=== PATIENT | female | born 1935 | race Hispanic/Latino ===

== ENCOUNTER → 2017-09-19 | Outpatient (CLI) | payer OTHER ==
[~2017-09-19] MED LIST: ALPR0.255 PO; ASPI-1197 PO; BENZ-51 PO; FOLI1TAB15 PO; METR500T PO; NAPR-1023 PO; OLME1TAB11 PO; OMEP20TA2 PO; OMEP40CA37 PO; ONDA4TAB4 PO; POTASSIUM PO; SIMV40TA5 PO; [UNRECOGNIZED DRUG - OTHER]
== END | disposition home or self-care (01) ==
LOC: OIH 10:46
PROVIDERS: ATTEND Internal Medicine
DX: M51.36 Other intervertebral disc degeneration, lumbar region (principal); M48.07 Spinal stenosis, lumbosacral region
CPT/HCPCS: 72100

== ENCOUNTER 2017-10-09 15:39 | Emergency (ER) | payer OTHER ==
[2017-10-09] MEDS ORDERED: DEXAMETHASONE SOD PHOSPHATE 10MG/ML 1ML VIAL ONE (16:35)
[2017-10-09] MEDS ORDERED: ONDANSETRON ODT 4 MG TAB ONE (16:35)
[2017-10-09] MEDS ORDERED: MORPHINE SULFATE 4 MG/1ML SYG ONE (16:36)
== END 2017-10-09 17:26 | disposition home or self-care (01) ==
LOC: EDH 15:39
DX: M54.32 Sciatica, left side (principal); K21.9 Gastro-esophageal reflux disease without esophagitis; I10 Essential (primary) hypertension; E78.5 Hyperlipidemia, unspecified; F15.10 Other stimulant abuse, uncomplicated; Z91.041 Radiographic dye allergy status
CPT/HCPCS: 96372 ×2; 99284; J1100; J2270

== ENCOUNTER → 2018-01-31 | Outpatient (CLI) | payer OTHER | END | disposition home or self-care (01) | LOC: OIH 11:26 | PROVIDERS: ATTEND Internal Medicine | DX: R07.9 Chest pain, unspecified (principal) | CPT/HCPCS: 71046 ==

== ENCOUNTER → 2018-12-29 | Outpatient (CLI) | payer OTHER | END | disposition home or self-care (01) | LOC: OIH 12:22 | PROVIDERS: ATTEND Internal Medicine | DX: S92.514A Nondisplaced fracture of proximal phalanx of right lesser toe(s), initial encounter for closed fracture (principal); X58.XXXA Exposure to other specified factors, initial encounter; Y93.89 Activity, other specified; Y92.89 Other specified places as the place of occurrence of the external cause; Y99.8 Other external cause status | CPT/HCPCS: 73620 ==

== ENCOUNTER → 2022-07-12 | Outpatient (CLI) | payer MEDICARE ==
[~2022-07-12] MED LIST changes: +BENZ-226 PO; -BENZ-51 PO; +OLME-40 PO; -OLME1TAB11 PO; +OMEP40CA21 PO; -OMEP40CA37 PO; +SIMV-46 PO; -SIMV40TA5 PO
== END | disposition home or self-care (01) ==
LOC: RAH 12:25
PROVIDERS: ATTEND Anesthesiology
DX: S33.140A Subluxation of L4/L5 lumbar vertebra, initial encounter (principal); M41.86 Other forms of scoliosis, lumbar region; M47.26 Other spondylosis with radiculopathy, lumbar region; X58.XXXA Exposure to other specified factors, initial encounter; Y93.89 Activity, other specified; Y92.89 Other specified places as the place of occurrence of the external cause; Y99.8 Other external cause status
CPT/HCPCS: 72114

== ENCOUNTER → 2024-07-05 | Outpatient (CLI) | payer MEDICARE ==
[~2024-07-05] MED LIST changes: -NAPR-1023 PO; +NAPR-1194 PO
--- NOTE | 2024-07-05 12:07 | HMCIMG ---
Exam Type: CHEST 2VWS Clinical Information: INTERSTITIAL LUNG DESIESE Comparison: None Findings: The lungs are clear of infiltrates. The heart is normal in size. The bony and soft tissue structures of the chest are unremarkable. Impression: Clear lungs.
== END | disposition home or self-care (01) ==
LOC: RAH 10:14
PROVIDERS: ATTEND Internal Medicine
DX: J84.9 Interstitial pulmonary disease, unspecified (principal)
CPT/HCPCS: 71046